=== PATIENT | male | born 1990 | race Caucasian/White ===

== ENCOUNTER 2020-01-04 16:45 | Emergency (ER) | payer OTHER, SELFPAY ==
--- NOTE | 2020-01-04 19:06 | RAD REPORT ---
EXAM DESCRIPTION: RAD - Hip Left 2 View - 01/04/2020 6:54 pm CLINICAL HISTORY: PAIN COMPARISON: No comparisons FINDINGS: AP and frogleg views of the left hip were obtained. There is no fracture or dislocation. No acute or destructive bony process seen. No soft tissue abnormality. IMPRESSION: Negative left hip examination for acute or significant findings.
--- NOTE | 2020-01-04 19:06 | RAD REPORT ---
EXAM DESCRIPTION: RAD - Shoulder Left 2 View - 01/04/2020 6:54 pm CLINICAL HISTORY: PAIN COMPARISON: No comparisons TECHNIQUE: Internal and external rotation views of the left shoulder were obtained. FINDINGS: No fracture or dislocation of the proximal humerus. AC joint separation is present. Clavic le is displaced approximately 2 centimeter superior to the acromion. No clavicle or acromion fracture . Acromial humeral joint space is normal. No abnormal soft tissue calcifications. IMPRESSION: Type V acromioclavicular injury.
--- NOTE | 2020-01-04 19:45 | EDPHYS ---
Physician Documentation [facility] Name: Tucker Stovall Age: 29 yrs Sex: Male : 1990 Arrival Date: 01/04/2020 Time: 16:47 Bed 24 Private MD: ED Physician Steven Washburn HPI: 01/03 23:55 This 29 yrs old Male presents to ER via Ambulatory with complaints of kb Shoulder Injury. 23:55 The patient or guardian complains of decreased range of motion, an injury, pain, that kb is acute, swelling, tenderness. left shoulder. Context: The problem was sustained outdoors, resulted from a fall, skateboarding, The patient experiences decreased range of motion, when attempts to raise arm, The patient reports no obvious deformity. Onset: The symptoms/episode began/occurred just prior to arrival. Modifying factors: the symptoms are alleviated by nothing. The symptoms are aggravated by movement. Associated signs and symptoms: The patient has no apparent associated signs or symptoms. Severity of symptoms: At their worst the symptoms were moderate, in the emergency department the symptoms are unchanged. Treatment prior to arrival includes: no previous treatment. The patient has not experienced similar symptoms in the past. The patient has not recently seen a physician. Pt reports he was on a long board, holding onto a rope and being pulled by his friend on a motorcycle. States they got going to fast and the board started shaking, then he fell onto left side. c/o left hip and shoulder pain. denies loc, hitting head or any other injuries. Historical: - Allergies: 17:14 No Known Allergies; iw - Home Meds: 17:14 None [Active]; iw - PMHx: 17:14 None; iw - PSHx: 17:14 None; iw - Immunization history:: Adult Immunizations unknown. - Social history:: Smoking status: Patient reports the use of cigarette tobacco products, smokes one-half pack cigarettes per day. ROS: 23:50 Constitutional: Negative for fever, chills, and weight loss, Cardiovascular: Negative kb for chest pain, palpitations, and edema, Respiratory: Negative for shortness of breath, cough, wheezing, and pleuritic chest pain, Abdomen/GI: Negative for abdominal pain, nausea, vomiting, diarrhea, and constipation, Skin: Negative for injury, rash, and discoloration, Neuro: Negative for headache, weakness, numbness, tingling, and seizure. 23:50 MS/extremity: Positive for decreased range of motion, pain, of the left hip and anterior aspect of left shoulder. Exam: 23:51 Constitutional: This is a well developed, well nourished patient who is awake, alert, kb and in no acute distress. Head/Face: Normocephalic, atraumatic. Chest/axilla: Normal chest wall appearance and motion. Nontender with no deformity. No lesions are appreciated. Cardiovascular: Regular rate and rhythm with a normal S1 and S2. No gallops, murmurs, or rubs. Normal PMI, no JVD. No pulse deficits. Respiratory: Lungs have equal breath sounds bilaterally, clear to auscultation and percussion. No rales, rhonchi or wheezes noted. No increased work of breathing, no retractions or nasal flaring. Abdomen/GI: Soft, non-tender, with normal bowel sounds. No distension or tympany. No guarding or rebound. No evidence of tenderness throughout. Skin: Warm, dry with normal turgor. Normal color with no rashes, no lesions, and no evidence of cellulitis. Neuro: Awake and alert, GCS 15, oriented to person, place, time, and situation. Cranial nerves II-XII grossly intact. Motor strength 5/5 in all extremities. Sensory grossly intact. Cerebellar exam normal. Normal gait. 23:51 Musculoskeletal/extremity: Extremities: grossly normal except: noted in the left hip: pain, noted in the anterior aspect of left shoulder: decreased ROM, pain, swelling, tenderness, ROM: limited active range of motion, in the anterior aspect of left shoulder, Circulation is intact in all extremities. Sensation intact. Weight bearing: able to fully bear weight. Vital Signs: 17:11 BP 118 / 79; Pulse 110; Resp 16; Temp 99.0; Pulse Ox 99% on R/A; Weight 77.11 kg; iw Height 6 ft. 0 in. (182.88 cm); Pain 8/10; 17:11 Body Mass Index 23.06 (77.11 kg, 182.88 cm) iw MDM: 19:07 Patient medically screened. kb 23:49 Data reviewed: vital signs, nurses notes. Data interpreted: Pulse oximetry: on room air kb is 99 %. Interpretation: normal. Counseling: I had a detailed discussion with the patient and/or guardian regarding: the historical points, exam findings, and any diagnostic results supporting the discharge/admit diagnosis, radiology results, the need for outpatient follow up, a family practitioner, to return to the emergency department if symptoms worsen or persist or if there are any questions or concerns that arise at home. 01/03 17:16 Order name: Shoulder Left (2 View) XRAY; Complete Time: 19:17 iw 01/03 17:16 Order name: Hip Left 2 View XRAY; Complete Time: 19:17 iw 01/03 19:41 Order name: Sling; Complete Time: 19:55 kb Administered Medications: 20:00 Drug: [place] 10 mg-325 mg 1 tabs Route: PO; ls4 20:15 Follow up: Response: No adverse reaction ls4 Disposition: 01/04 01:52 Co-signature as Attending Physician, Steven Washburn MD. pk Disposition: 01/04/20 19:44 Discharged to Home. Impression: Type V acromioclavicular injury. - Condition is Stable. - Discharge Instructions: Shoulder Separation. - Prescriptions for Tylenol- Codeine #3 300-30 mg Oral Tablet - take 1 tablet by ORAL route every 6 hours As needed; 15 tablet. - Medication Reconciliation Form, Thank You Letter, Antibiotic Education, Prescription Opioid Use form. - Follow up: Emergency Department; When: As needed; Reason: Worsening of condition. Follow up: Private Physician; When: 2 - 3 days; Reason: Recheck today's complaints, Continuance of care, Re-evaluation by your physician. Signatures: Dispatcher [employer] [facility] Marilyn Joshi, Steven Brown MD MD pk Shanice Cummings RN RN iw Stewart, Lisa, RN RN ls4 Corrections: (The following items were deleted from the chart) 01/03 20:02 19:44 01/04/2020 19:44 Discharged to Home. Impression: Type V acromioclavicular injury. ls4 Condition is Stable. Forms are Medication Reconciliation Form, Thank You Letter, Antibiotic Education, Prescription Opioid Use. Follow up: Emergency Department; When: As needed; Reason: Worsening of condition. Follow up: Private Physician; When: 2 - 3 days; Reason: Recheck today's complaints, Continuance of care, Re-evaluation by your physician. kb 23:51 23:50 MS/extremity: Positive for of the left hip and anterior aspect of left shoulder, kb kb 23:55 23:51 Musculoskeletal/extremity: Extremities: grossly normal except: noted in the left kb hip: pain, noted in the anterior aspect of left shoulder: decreased ROM, pain, swelling, tenderness, ROM: limited active range of motion, in the anterior aspect of left shoulder, Circulation is intact in all extremities. Sensation intact. kb
--- NOTE | 2020-01-04 19:45 | ER ---
Nurse's Notes [facility] Name: Tucker Stovall Age: 29 yrs Sex: Male : 1990 Arrival Date: 01/04/2020 Time: 16:47 Bed 24 Private MD: Diagnosis: Type V acromioclavicular injury Presentation: 01/03 17:11 Chief complaint: Patient states: was long boarding, fell onto left side, has pain to iw left shoulder and left hip. Coronavirus screen: Proceed with normal triage. Patient denies a cough. Patient denies shortness of breath or difficulty breathing. Patient denies measured and/or subjective temperature greater than 100.4F prior to today's visit. Patient denies travel on a cruise ship or to a country the [facility] currently lists as an affected area. Patient denies contact with known and/or suspected case of COVID-19. Ebola Screen: Patient negative for fever greater than or equal to 101.5 degrees Fahrenheit, and additional compatible Ebola Virus Disease symptoms Patient denies exposure to infectious person. Patient denies travel to an Ebola-affected area in the 21 days before illness onset. No symptoms or risks identified at this time. Initial Sepsis Screen: Does the patient meet any 2 criteria? No. Patient's initial sepsis screen is negative. Does the patient have a suspected source of infection? No. Patient's initial sepsis screen is negative. Risk Assessment: Do you want to hurt yourself or someone else? Patient reports no desire to harm self or others. Onset of symptoms was January 04, 2020. 17:11 Method Of Arrival: Ambulatory iw 17:11 Acuity: BRAEDEN 4 iw Triage Assessment: 18:03 Pain: Complains of pain in left hip and anterior aspect of left shoulder. ls4 Musculoskeletal: Circulation, motion, and sensation intact. Capillary refill < 3 seconds, Range of motion: limited in left shoulder. 18:28 General: Appears uncomfortable, Behavior is calm, cooperative. ls4 Historical: - Allergies: 17:14 No Known Allergies; iw - Home Meds: 17:14 None [Active]; iw - PMHx: 17:14 None; iw - PSHx: 17:14 None; iw - Immunization history:: Adult Immunizations unknown. - Social history:: Smoking status: Patient reports the use of cigarette tobacco products, smokes one-half pack cigarettes per day. Screenin:28 Abuse screen: Denies threats or abuse. Denies injuries from another. Nutritional ls4 screening: No deficits noted. Tuberculosis screening: No symptoms or risk factors identified. Fall Risk None identified. Vital Signs: 17:11 BP 118 / 79; Pulse 110; Resp 16; Temp 99.0; Pulse Ox 99% on R/A; Weight 77.11 kg; iw Height 6 ft. 0 in. (182.88 cm); Pain 8/10; 17:11 Body Mass Index 23.06 (77.11 kg, 182.88 cm) iw ED Course: 16:47 Patient arrived in ED. as 17:12 No provider procedures requiring assistance completed. ls4 17:12 Patient did not have IV access during this emergency room visit. ls4 17:14 Triage completed. iw 17:14 Arm band placed on. iw 18:27 Radha Jiménez, RN is Primary Nurse. ls4 18:28 Patient has correct armband on for positive identification. Bed in low position. Call ls4 light in reach. Side rails up X 1. gericare aide teacher on. Pulse ox on. NIBP on. Warm blanket given. Verbal reassurance given. 18:30 No apparent distress. ls4 18:55 Shoulder Left (2 View) XRAY In Process Unspecified. EDMS 18:55 Hip Left 2 View XRAY In Process Unspecified. EDMS 19:06 Marilyn Joshi FNP-C is [facility]. kb 19:06 Steven Washburn MD is Attending Physician. kb Administered Medications: 20:00 Drug: [place] 10 mg-325 mg 1 tabs Route: PO; ls4 20:15 Follow up: Response: No adverse reaction ls4 Outcome: 19:44 Discharge ordered by . kb 20:02 Patient left the ED. ls4 Signatures: Dispatcher [employer] EDMS Marilyn Joshi FNP-C FNP-Ckb Martinez, Amelia as Williams, Irene, DEANNE RN iw Radha Jiménez, RN RN ls4
[2020-01-04] MEDS ORDERED: HYDROCODONE/APAP 10/325 TAB ONE (20:05)
[2020-01-04 20:07] VITALS: BP 118/79; TEMP 99; O2SAT 99
== END 2020-01-04 20:02 | disposition home or self-care (01) ==
LOC: ER 16:45
DX: S43.102A Unspecified dislocation of left acromioclavicular joint, initial encounter (principal); V00.131A Fall from skateboard, initial encounter; Y93.51 Activity, roller skating (inline) and skateboarding; Y92.9 Unspecified place or not applicable; Y99.9 Unspecified external cause status; F17.210 Nicotine dependence, cigarettes, uncomplicated
CPT/HCPCS: 99284

== ENCOUNTER 2022-10-02 18:06 | Emergency (ER) | payer SELFPAY ==
[2022-10-02] MEDS ORDERED: LIDOCAINE 1% W/EPI 1:100,000 50 ML MDV ONE (19:39)
[2022-10-02] MEDS ORDERED: TDAP (DIPHTH,PERTUSS(ACELL),TET VAC) 0.5 ML VIAL IMVAC ONE (19:46)
--- NOTE | 2022-10-02 19:51 | RAD REPORT ---
EXAM DESCRIPTION: RAD - Hand Right 3 View - 10/02/2022 7:29 pm CLINICAL HISTORY: Right hand pain status post injury FINDINGS: No fracture or dislocation is seen.
--- NOTE | 2022-10-02 20:22 | ER ---
Nurse's Notes [facility] Name: Tucker Stovall Age: 32 yrs Sex: Male : 1990 Arrival Date: 10/02/2022 Time: 18:07 Bed 12 Private MD: Diagnosis: Laceration without foreign body of right hand, initial encounter Presentation: 10/02 18:34 Chief complaint: Patient states: laceration to top of right hand, cut with knife while ld1 "horse playing.". Coronavirus screen: At this time, the client does not indicate any symptoms associated with coronavirus-19. Ebola Screen: No symptoms or risks identified at this time. Complicating Factors: There are no complicating factors for this patient. Initial Sepsis Screen: Does the patient meet any 2 criteria? No. Patient's initial sepsis screen is negative. Does the patient have a suspected source of infection? No. Patient's initial sepsis screen is negative. Risk Assessment: Do you want to hurt yourself or someone else? Patient reports no desire to harm self or others. Onset of symptoms was October 02, 2022. 18:34 Method Of Arrival: Ambulatory ld1 18:34 Acuity: BRAEDEN 4 ld1 Triage Assessment: 18:35 General: Appears in no apparent distress. comfortable, Behavior is calm, cooperative, ld1 appropriate for age. Pain: Complains of pain in right hand Pain does not radiate. Pain currently is 8 out of 10 on a pain scale. EENT: No signs and/or symptoms were reported regarding the EENT system. Neuro: Level of Consciousness is awake, alert, obeys commands, Oriented to person, place, time, situation. Cardiovascular: Capillary refill < 3 seconds. Respiratory: Airway is patent Respiratory effort is even, unlabored. GI: Abdomen is flat, non-distended. : No signs and/or symptoms were reported regarding the genitourinary system. Derm: No signs and/or symptoms reported regarding the dermatologic system. Musculoskeletal: No signs and/or symptoms reported regarding the musculoskeletal system. Injury Description: Laceration sustained to right hand. Historical: - Allergies: 18:35 No Known Allergies; ld1 - Home Meds: 18:35 None [Active]; ld1 - PMHx: 18:35 None; ld1 - PSHx: 18:35 None; ld1 - Immunization history:: Adult Immunizations up to date, Client reports receiving the 2nd dose of the Covid vaccine. - Social history:: Smoking status: Patient denies any tobacco usage or history of. Patient/guardian denies using alcohol. Screenin:44 [facility] ED Fall Risk Assessment (Adult) History of falling in the last 3 months, kr3 including since admission No falls in past 3 months (0 pts) Confusion or Disorientation No (0 pts) Intoxicated or Sedated No (0 pts) Impaired Gait No (0 pts) Mobility Assist Device Used No (0 pt) Altered Elimination No (0 pt) Score/Fall Risk Level 0 - 2 = Low Risk Oriented to surroundings, Maintained a safe environment, Educated pt \\T\\ family on fall prevention, incl call for assistance when getting out of bed, Assessed \\T\\ reinforced patient's understanding of fall precautions, Hourly rounding (assess needs \\T\\ fall precautionary measures) done. Abuse screen: Denies threats or abuse. Nutritional screening: No deficits noted. Tuberculosis screening: No symptoms or risk factors identified. Assessment: 20:45 Injury Description: Laceration is clean, bleeding moderately. kr3 Vital Signs: 18:34 Pulse 71; Resp 18; Temp 97.8(O); Pulse Ox 100% on R/A; Weight 104.33 kg; Height 5 ft. ld1 10 in. (177.80 cm); Pain 0/10; 18:34 Body Mass Index 33.00 (104.33 kg, 177.80 cm) ld1 ED Course: 18:07 Patient arrived in ED. am2 18:25 Andrew Jeffers PA is PHCP. cp 18:25 Sunny Gonzáles DO is Attending Physician. cp 18:35 Triage completed. ld1 18:35 Arm band placed on right wrist. ld1 19:00 Call light in reach. Side rails up X 1. kr3 19:05 Ruben Melo MD is Attending Physician. cp 19:24 Rashmi Mancia, DEANNE is Primary Nurse. kr3 20:44 No provider procedures requiring assistance completed. Patient did not have IV access kr3 during this emergency room visit. Administered Medications: 19:40 Drug: Lidocaine-Epinephrine -1%: (1:100,000) 10 ml {Note: administered by Falguni at kr3 bedside for procedure.} Volume: 20 ml; Route: Infiltration; 20:46 Follow up: Response: No adverse reaction kr3 19:45 Drug: Tetanus-Diphtheria Toxoid Adult 0.5 ml {[employer] Operator: [employer] ([employer] Exp: kr3 02/13/2123. Lot #: [id number]. } Route: IM; Site: left deltoid; 20:46 Follow up: Response: No adverse reaction kr3 Medication: 20:46 Vaccine Information Statement (VIS) provided today. Questions and/or concerns kr3 addressed. VIS edition date: March 07, 2021. Outcome: 20:22 Discharge ordered by . cp 20:37 Patient left the ED. kr3 20:45 Discharged to home ambulatory. kr3 20:45 Condition: stable 20:45 Discharge instructions given to patient, Instructed on discharge instructions, follow up and referral plans. medication usage, Demonstrated understanding of instructions, follow-up care, medications, Prescriptions given X 1. Signatures: Andrew Jeffers PA PA cp Moreno, Amanda am2 Vannesa Landers, RN RN ld1 Rashmi Mancia RN RN kr3
--- NOTE | 2022-10-02 20:22 | EDPHYS ---
Physician Documentation [facility] Name: Tucker Stovall Age: 32 yrs Sex: Male : 1990 Arrival Date: 10/02/2022 Time: 18:07 Bed 12 Private MD: ED Physician Ruben Melo HPI: 10/02 18:45 This 32 yrs old Male presents to ER via Ambulatory with complaints of Laceration To cp Hand. 18:45 The patient has a laceration occurred at work, The injury was accidental, while "horse cp playing" with co-worker, patient reports being accidently cut with knife. The laceration(s) is(are) located on the right hand. Onset: The symptoms/episode began/occurred just prior to arrival. Associated signs and symptoms: The patient has no apparent associated signs or symptoms. Historical: - Allergies: 18:35 No Known Allergies; ld1 - Home Meds: 18:35 None [Active]; ld1 - PMHx: 18:35 None; ld1 - PSHx: 18:35 None; ld1 - Immunization history:: Adult Immunizations up to date, Client reports receiving the 2nd dose of the Covid vaccine. - Social history:: Smoking status: Patient denies any tobacco usage or history of. Patient/guardian denies using alcohol. ROS: 18:50 Constitutional: Negative for body aches, chills, fever, poor PO intake. cp 18:50 Eyes: Negative for injury, pain, redness, and discharge. cp 18:50 Cardiovascular: Negative for chest pain. 18:50 Respiratory: Negative for cough, shortness of breath, wheezing. 18:50 Abdomen/GI: Negative for abdominal pain, nausea, vomiting, and diarrhea. 18:50 MS/extremity: Positive for laceration, of the dorsum of right hand, Negative for paresthesias. 18:50 All other systems are negative. Exam: 18:55 Constitutional: The patient appears in no acute distress, alert, awake, non-toxic, well cp developed, well nourished. 18:55 Head/Face: Normocephalic, atraumatic. cp 18:55 Chest/axilla: Inspection: normal. 18:55 Cardiovascular: Rate: normal, Pulses: Pulses are 2+ in right radial artery. 18:55 Respiratory: the patient does not display signs of respiratory distress, Respirations: normal, no use of accessory muscles, no retractions, labored breathing, is not present, Breath sounds: are clear throughout, no decreased breath sounds, no stridor, no wheezing. 18:55 Abdomen/GI: Inspection: abdomen appears normal. 18:55 Musculoskeletal/extremity: Extremities: grossly normal except: noted in the dorsum of right hand: laceration, pain, tenderness, There is no evidence of decreased ROM, ROM: full active range of motion, in the right hand and right wrist, Sensation intact. Vital Signs: 18:34 Pulse 71; Resp 18; Temp 97.8(O); Pulse Ox 100% on R/A; Weight 104.33 kg; Height 5 ft. ld1 10 in. (177.80 cm); Pain 0/10; 18:34 Body Mass Index 33.00 (104.33 kg, 177.80 cm) ld1 Laceration: 20:25 Wound Repair of 4cm ( 1.6in ) subcutaneous laceration to dorsum of right hand. Linear cp shaped.. Distal neuro/vascular/tendon intact. Anesthesia: Wound infiltrated with 8 mls of Lido/Marcaine. Wound prep: Moderate cleansing by me, Wound irrigation by me. Skin closed with 1 4-0 Prolene using running sutures. Dressed with Bacitracin, 4x4's. Patient tolerated well. MDM: 18:37 Patient medically screened. cp 20:22 Data reviewed: vital signs, nurses notes, radiologic studies, plain films. cp 20:22 Differential diagnosis: superficial laceration, tendon injury, vascular injury, open cp fracture. Independent interpretation of the following test(s) in the Emergency Department X-Ray: My interpretation is right hand images negative for fracture. Counseling: I had a detailed discussion with the patient and/or guardian regarding: the historical points, exam findings, and any diagnostic results supporting the discharge/admit diagnosis, radiology results, the need for outpatient follow up, a family practitioner, to return to the emergency department if symptoms worsen or persist or if there are any questions or concerns that arise at home. Response to treatment: the patient's symptoms have markedly improved after treatment, and as a result, I will discharge patient. 10/02 18:38 Order name: XRAY Hand RIGHT 3 View cp 10/02 19:25 Order name: Dressing - Wound; Complete Time: 20:15 10/02 19:25 Order name: Gloves, Sterile; Complete Time: 19:36 cp 10/02 19:25 Order name: Setup Suture Tray; Complete Time: 19:37 cp 10/02 19:52 Order name: RAD; Complete Time: 20:05 [facility] 10/02 20:05 Interpretation: Report reviewed. cp Administered Medications: 19:40 Drug: Lidocaine-Epinephrine -1%: (1:100,000) 10 ml {Note: administered by Falguni at kr3 bedside for procedure.} Volume: 20 ml; Route: Infiltration; 20:46 Follow up: Response: No adverse reaction 3 19:45 Drug: Tetanus-Diphtheria Toxoid Adult 0.5 ml {Director Presales: [employer] Exp: kr3 02/13/2123. Lot #: [id number]. } Route: IM; Site: left deltoid; 20:46 Follow up: Response: No adverse reaction 3 Disposition Summary: 10/02/22 20:22 Discharge Ordered Location: Home cp Problem: new cp Symptoms: have improved cp Condition: Stable cp Diagnosis - Laceration without foreign body of right hand, initial encounter cp Followup: cp - With: Private Physician - When: 10 - 14 days - Reason: Staple/Suture removal Discharge Instructions: - Discharge Summary Sheet cp - Laceration Care, Adult cp - Sutured Wound Care cp Forms: - Medication Reconciliation Form cp - Thank You Letter cp - Antibiotic Education cp - Prescription Opioid Use cp Prescriptions: - Ibuprofen 800 mg Oral Tablet - take 1 tablet by ORAL route every 8 hours As needed take with food; 30 tablet; cp Refills: 0, Product Selection Permitted Addendum: 10/04/2022 20:23 Co-signature as Attending Physician, Ruben Melo MD I agree with the assessment s p4 and plan of care. I reviewed the patient's care provided by the Advanced Practice Provider and agree with the diagnosis and treatment plan. Signatures: Dispatcher [employer] EDIL Andrew Jeffers PA PA cp Vannesa Landers, DEANNE RN ld1 Rashmi Mancia RN RN kr3 Ruben Melo MD MD sp4
[2022-10-02 20:46] VITALS: TEMP 97.8; O2SAT 100
== END 2022-10-02 20:37 | disposition home or self-care (01) ==
LOC: ER 18:06
PROC: 0HQFXZZ Repair Right Hand Skin, External Approach (ICD-10-PCS; principal; 2022-10-02)
DX: S61.411A Laceration without foreign body of right hand, initial encounter (principal)
CPT/HCPCS: 90471; 99283

== ENCOUNTER 2022-10-18 18:27 | Emergency (ER) | payer SELFPAY ==
--- NOTE | 2022-10-18 18:40 | EDPHYS ---
Physician Documentation [facility] Name: Tucker Stovall Age: 32 yrs Sex: Male : 1990 Arrival Date: 10/18/2022 Time: 18:28 Bed Waiting Private MD: ED Physician Abhilash العراقي HPI: 10/18 18:38 This 32 yrs old Male presents to ER via Unassigned with complaints of Suture Removal. kb 18:38 The patient has sutures on the dorsum of right hand. Previous treatment: The patient kb was initially treated 16 day(s) ago, the care was rendered at [facility]. Previous treatment: Treatment type: The patient's original treatment included sutures. Sutures/migel progress: The patient has no c/o's. The wound is well-healing with no redness, swelling, discharge, or dehiscence reported. The patient has not experienced similar symptoms in the past. The patient has not recently seen a physician. ROS: 18:38 Constitutional: Negative for fever, chills, and weight loss. kb 18:38 Skin: Positive for of the dorsum of right hand, sutures in place. 18:38 All other systems are negative. Exam: 18:38 Constitutional: This is a well developed, well nourished patient who is awake, alert, kb and in no acute distress. 18:38 Skin: Wound recheck: Suture laceration closure: the wound is healing well, the edges are well approximated, no evidence of dehiscence, no drainage, no erythema, no swelling. Procedures: 18:38 Suture/Staple removal: Removed 1 sutures, from dorsum of right hand, site appears well kb healed, Patient tolerated well. MDM: 18:32 Patient medically screened. kb 18:39 Data reviewed: vital signs, nurses notes. Counseling: I had a detailed discussion with kb the patient and/or guardian regarding: the historical points, exam findings, and any diagnostic results supporting the discharge/admit diagnosis, the need for outpatient follow up, a family practitioner, to return to the emergency department if symptoms worsen or persist or if there are any questions or concerns that arise at home. Administered Medications: No medications were administered Disposition Summary: 10/18/22 18:40 Discharge Ordered Location: Home kb Condition: Stable kb Diagnosis - Encounter for removal of sutures kb Followup: kb - With: Emergency Department - When: As needed - Reason: Worsening of condition Followup: kb - With: Private Physician - When: 2 - 3 days - Reason: Recheck today's complaints, Continuance of care, Re-evaluation by your physician Discharge Instructions: - Discharge Summary Sheet kb - Suture Removal, Care After kb Forms: - Medication Reconciliation Form kb - Thank You Letter kb - Antibiotic Education kb - Prescription Opioid Use kb Signatures: Marilyn Joshi FNP-C FNP-Ckb
[2022-10-18 23:14] VITALS: BP 125/83; TEMP 98.3; O2SAT 100
== END 2022-10-18 19:31 | disposition home or self-care (01) ==
LOC: ER 18:27
DX: Z48.02 Encounter for removal of sutures (principal)
CPT/HCPCS: 99281